=== PATIENT | male | born 1975 | race Caucasian/White ===

== ENCOUNTER 2023-09-28 06:57 | Day surgery (SDC) | payer BC ==
[2023-09-27 10:18] LABS: Potassium 3.5 mEq/L (3.5-5.1)
[2023-09-28] MEDS ORDERED: Ringers Lactate 1,000 ML IV ONE (07:15)
[2023-09-28 10:41] VITALS: BP 118/77; TEMP 96.7; O2SAT 95
--- NOTE | 2023-10-02 14:04 | EKG ---
Test Date: 2023-09-27 Test Time: 10:50:42 [employer]: NED MEASUREMENT RESULTS: Intervals: Rate: 49 NM: 114 QRSD: 84 QT: 436 QTc: 393 [place]: P: 2 NM: 114 QRS: 67 T: 67 INTERPRETIVE STATEMENTS: Marked sinus bradycardia Abnormal ECG No previous ECG available for comparison Electronically Signed On 10-02-23 13:46:05 SCOW DERRICK OPERATOR by Herb Jackson
== END 2023-09-28 10:10 | disposition home or self-care (01) ==
LOC: OR 06:57
PROVIDERS: ATTEND Surgery
PROC: 0DJD8ZZ Inspection of Lower Intestinal Tract, Via Natural or Artificial Opening Endoscopic (ICD-10-PCS; principal; 2023-09-28 08:00)
DX: Z12.11 Encounter for screening for malignant neoplasm of colon (principal); K64.8 Other hemorrhoids; I10 Essential (primary) hypertension; Z83.719 Family history of colon polyps, unspecified
CPT/HCPCS: 93005; 80048; 36415; 45378; J7120